=== PATIENT | male | born 2000 | race Caucasian/White ===

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

== ENCOUNTER 2021-02-10 12:26 | Emergency (ER) | payer SELFPAY ==
[2021-02-10 12:27] VITALS: BP 125/89; PULSE 103; RESP 18; TEMP 36.8; O2SAT 97; BMI 23.1
--- NOTE | 2021-02-10 12:48 | RAD_ITS ---
STUDY: X-RAY CHEST REASON FOR EXAM: Male, 20 years old. Chest pain TECHNIQUE: Single AP portable view of the chest. COMPARISON: None. FINDINGS: The lungs are clear and expanded. There is no demonstrated pleural abnormality. Normal size heart. Normal mediastinum and danuta. Normal visualized pulmonary arteries. Normal visualized aortic arch and descending thoracic aorta. Normal visualized thoracic spine. Normal visualized ribs, clavicles, and shoulders. There is no demonstrated abnormality of the visualized soft tissue structures of the upper abdomen. RAD/Chest 1 View (Portable) IMPRESSION: Normal x-ray examination of the chest. Electronically Signed: Nomi Hendricks MD at 13:10 EST , Service support ,
[2021-02-10 13:09] LABS: Absolute Lymphocyte Count 1.54 X10^3/uL (0.83-4.51); Absolute Neutrophil Count 3.2 X10^3/uL (2.0-7.7); Basophil# 0.01 X10^3/uL; Basophil% 0.2 % (0-1); Eosinophil# 0.05 X10^3/uL; Eosinophils% 0.9 % (0-5); Hematocrit 46.6 % (40-54); Hemoglobin 15.3 g/dL (13.0-16.5); Lymphocyte # 1.54 X10^3/ul (0.83-4.51); Lymphocyte % 29.1 % (19-41); Mean Corp Hgb Conc 32.8 g/dL (32-36); Mean Corpuscular Volume 91.4 fL (80-94); Mean Platelet Vol. 8.8 fl (6.2-12.0); Monocyte# 0.47 X10^3/uL; Monocyte% 8.9 % (0-10); NRBC Flagged by Analyzer 0 % (0-5); Neutrophil # 3.21 X10^3/uL (2.7-7.7); Neutrophil % 60.5 % (47-70); Platelet Count 263 K/mm3 (150-450); RBC Distribution Width CV 12.8 % (11.6-14.6); RBC Distribution Width SD 43.3 fl (35.1-43.9); White Blood Count 5.3 K/mm3 (4.4-11.0)
[2021-02-10 13:28] LABS: Anion Gap 6 (5-15); BUN 17 mg/dL (7-18); BUN/Creat Ratio 20.5 RATIO (10-20); Calcium,Total 9.2 mg/dL (8.5-10.1); Chloride 104 mmol/L (98-107); Creatinine, Serum 0.83 mg/dL (0.70-1.30); EST Glomerular Filtration Rate 124 mL/min (>60); Est Glom Filt Rate - Afr Amer 150 mL/min (>60); Estimated Creatinine Clearance 171.62 ml/min; Glucose 100 mg/dL (74-106); Potassium 4.1 mmol/L (3.5-5.1); Sodium Level 139 mmol/L (136-145); Troponin-I HS 4 pg/mL (3.0-78.0)
[2021-02-10 14:03] VITALS: BP 122/74; PULSE 83; RESP 17; O2SAT 100
--- NOTE | 2021-02-10 14:28 | EDS_ITS ---
HPI History of Present Illness Chief Complaint: Chest Pain Informant: patient Narrative Narrative: Presenting for evaluation intermittent chest pains with palpitations increasing in frequency since 2 months ago. Over last 2 weeks daily symptoms. He states feels sharp twinges of palpitations lasting a minute however progressing. He works doing [employer]. Today had symptoms throughout the day. No cough. No dyspnea. Symptoms left-sided. Reported lightheaded symptoms. No nausea or vomiting. Tobacco history. Family history of uncle with [place] at age of 38. Denies hypertension, diabetes, hypercholesterolemia. Denies any recent travel surgeries or immobilizations. No history of PE or DVT. States currently symptoms subsided. States had symptoms similar in the past however mild saw his PCP reported wanted to start him on medications however is unclear what medications. No history of stress test. Prior Similar Symptoms: Yes CVD Risk Factors: Positive for Family History 1' </=55 and Smoking [facility] Medical History ADHD Anxiety Home Medications clonazepam 1 mg PO BID PRN PRN 02/22/18 [History Last Taken Unknown] dicyclomine 20 mg PO TIDAC #20 cap 02/22/18 [Rx Last Taken Unknown] escitalopram oxalate 40 mg PO DAILY 02/22/18 [History Last Taken Unknown] thyroid (pork) [[place] Thyroid] 60 mg PO DAILY 02/22/18 [History Last Taken Unknown] Allergy/AdvReac Type Severity Reaction Status Date / Time Penicillins Allergy Anaphylaxis Verified 02/10/21 12:26 Surgical History Hx of cholecystectomy Social History Smoking Status: Never smoker ROS ROS ED Constitutional Constitutional ED: Denies chills, fever(s) or sweats Eyes Eyes: Denies change in vision ENT ENT ED: Denies dysphagia or sore throat Cardiovascular Cardiovascular: Reports chest pain and palpitations; Denies leg edema or racing heartbeat Respiratory/Chest Respiratory/Chest: Denies cough, dyspnea or dyspnea on exertion Gastrointestinal Gastrointestinal: Denies abdominal pain, diarrhea, nausea or vomiting Genitourinary Genitourinary ED: Denies dysuria, hematuria or urinary frequency Musculoskeletal Musculoskeletal: Denies back pain, extremity pain or neck pain Integumentary Denies rash or wounds Neurologic Neurologic: Denies headache(s), paresthesias or weakness EXAM Physical Exam Const Vital Signs: 02/10/21 12:27 02/10/21 14:03 02/10/21 16:08 Temperature 98.2 F Temperature Source Temporal Pulse Rate 103 H 83 125 H Respiratory Rate 18 17 17 Blood Pressure 125/89 H 122/74 H 133/82 H Blood Pressure Mean 101 90 Pulse Ox 97 100 100 Oxygen Delivery Method Room Air Room Air Positive well nourished and well developed General Appearance ED: well developed and NAD HEENT Reports moist mucous membranes normocephalic and atraumatic Eyes PERRL, EOMs intact bilaterally and conjunctivae normal General Eye ED: Yes normal appearance of both eyes Neck no lymphadenopathy and supple General: Negative for tenderness Chest Wall Chest: Negative for tenderness Resp normal respiratory effort and normal air movement Effort and Inspection: symmetric chest movement; Negative for respiratory distress Cardio regular rate, regular rhythm and no murmurs Peripheral Pulses: pulses 2+ throughout GI normal to inspection, nondistended, normoactive bowel sounds and non-tender Palpation: Negative for guarding or rebound tenderness present Back/Spine no CVA tenderness and no thoracic nor lumbar tenderness Extremity normal to inspection General Extremety ED: Negative for edema or tenderness General Extremity: Negative for edema Neuro oriented x3 and no sensory deficits noted Sensorium / Orientation: awake and alert Skin no rashes or lesions noted and no wounds Heart Score History: Slightly/Non-Suspicious ECG: Normal Risk Factors: 1 or 2 Risk Factors Troponin: </= Normal Limit Score: 1 MDM MDM MDM Narrative Medical decision making narrative: Patient appears primary complaints palpitations. EKG was normal. Heart rate normalized. Labs with troponin x2 -. He is symptom-free multiple evaluations. There is no current Holter monitor available in the department to discharge with the patient. I spoke with him will need to follow-up with his PCP however he states he called and they did not set up Holter monitors. Therefore he is given follow-up with cardiology. I discussed with him decrease caffeine intake to avoid stimulants for palpitations. He understands. Return precautions discussed. There was difficulty with crossover patient imagings, unable to review chest x-ray however report from radiology was normal. All questions were answered. Lab Data Attestation: I reviewed the patient's lab results. Labs: Laboratory Results - last 24 hr 02/10/21 02/10/21 02/10/21 13:05 13:05 15:25 WBC 5.3 RBC 5.10 Hgb 15.3 Hct 46.6 MCV 91.4 MCH 30.0 MCHC 32.8 RDW Std Deviation 43.3 RDW Coeff of [place] 12.8 Plt Count 263 MPV 8.8 Immature Gran % (Auto) 0.400 Neut % (Auto) 60.5 Lymph % (Auto) 29.1 [place] % (Auto) 8.9 Eos % (Auto) 0.9 Baso % (Auto) 0.2 Absolute Neuts (auto) 3.2 Absolute Lymphs (auto) 1.54 Nucleated RBC % 0 Sodium 139 Potassium 4.1 Chloride 104 Carbon Dioxide 29.0 Anion Gap 6 BUN 17 Creatinine 0.83 Estim Creat Clear Calc 171.62 Est GFR (MDRD) Af Amer 150 Est GFR (MDRD) Non-Af 124 BUN/Creatinine Ratio 20.5 H Glucose 100 Calcium 9.2 Troponin I High Sens 4 4 Radiography Chest X-Ray - ED: Read by Radiologist and Normal EKG Initial EKG: Attestation: I personally reviewed and interpreted this EKG as follows: Comments: Sinus rate of 87, no ST or T wave changes. QTc 416. Discharge Plan Triage Chief Complaint: Chest Pain ED Provider: Amado Carson Dx/Rx/DC Orders Clinical Impression: Palpitations, Chest pain Instructions: ED Chest Pain, Uncertain Cause, ED Palpitations Prescriptions: No Action clonazepam 1 MG tablet 1 mg PO BID PRN PRN (Reason: Anxiety) RF: 0 escitalopram oxalate 20 MG tablet 40 mg PO DAILY RF: 0 thyroid (pork) [[place] Thyroid] 60 MG tablet 60 mg PO DAILY RF: 0 dicyclomine 10 MG capsule 20 mg PO TIDAC Qty: 20 RF: 0 Primary Care Provider: Keith Mendoza Referrals: Keith Mendoza DO [Primary Care Provider] - 3-5 Days Mendel Villarreal MD [STAFF PHYSICIAN] - 3-5 Days Activity Restrictions/Additional Instructions: Your cardiac work-up is negative. Decrease your caffeine intake. Follow-up with your Dr. Villarreal to set up a Holter monitor as an outpatient since your doctor does not order the monitors. Disposition Disposition: Home, Self Care Discharge Date/Time: 02/10/21 16:09
[2021-02-10 15:48] LABS: Troponin-I HS 4 pg/mL (3.0-78.0)
[2021-02-10 16:08] VITALS: BP 133/82; PULSE 125; RESP 17; O2SAT 100
== END 2021-02-10 16:09 | disposition home or self-care (01) ==
PROVIDERS: Emergency Provider Emergency Medicine; PCP Family Medicine
DX: R00.2 Palpitations (principal); R07.9 Chest pain, unspecified; F41.9 Anxiety disorder, unspecified; Z79.899 Other long term (current) drug therapy
CPT/HCPCS: 71045; 80048; 84484; 85025; 93005; 99284; A4216

== ENCOUNTER 2021-03-17 08:23 | Outpatient (CLI) | payer SELFPAY | END 2021-03-17 23:59 | disposition short-term general hospital (02) | PROVIDERS: PCP Family Medicine; Referring Provider Internal Medicine Cardiovascular Disease; Visit Provider Internal Medicine Cardiovascular Disease | DX: R00.2 Palpitations (principal); R07.9 Chest pain, unspecified | CPT/HCPCS: 93225; 93226 ==

== ENCOUNTER 2021-05-22 13:56 | Outpatient (CLI) | payer SELFPAY ==
--- NOTE | 2021-05-22 14:01 | ECHOD_ITS ---
Reason For Study: Arrhythmia Procedure This was a 2D Doppler, Color Flow transthoracic echocardiogram. Exam performed in department. Left Ventricle Normal LV size. Left ventricular systolic function is normal. The estimated ejection fraction is 55 %. Normal diastology for age. No regional wall motion abnormalities noted. Right Ventricle Normal RV size. Normal systolic function. Atria Normal left atrium. Normal right atrium. Mitral Valve Normal mitral valve. Tricuspid Valve Normal tricuspid valve. Mild tricuspid valve insufficiency. Pulmonary artery systolic pressure is 26 mmHg. Aortic Valve Normal aortic valve. Trisinus/trileaflet aortic valve. Pulmonic Valve Normal pulmonic valve. Great Vessels Normal aortic root. The pulmonary artery is normal size. Normal inferior vena cava. Pericardium/Pleural No pericardial effusion. MMode/2D Measurements & Calculations LVIDd: 5.3 cm IVSd: 0.85 cm Ao root diam: 2.8 cm LVIDs: 3.9 cm LVPWd: 0.98 cm RVDd: 3.4 cm FS: 26.6 % LAV(MOD-bp): 29.0 ml LVAd ap4: 32.2 cm2 SV(MOD-sp4): 54.7 ml LAV(MOD-bp) Indexed: 13.1 ml/m2 LVLd ap4: 9.0 cm LAV(MOD-sp2): 36.0 ml EDV(MOD-sp4): 95.6 ml LAV(MOD-sp4): 20.4 ml EDV(sp4-el): 97.9 ml LVAs ap4: 19.3 cm2 LVLs ap4: 7.5 cm ESV(MOD-sp4): 40.9 ml ESV(sp4-el): 42.1 ml EF(MOD-sp4): 57.2 % EF(sp4-el): 57.0 % SV(sp4-el): 55.8 ml LA A4 area: 11.3 cm2 LA dimension(2D): 3.2 cm RA A4 area: 11.1 cm2 Doppler Measurements & Calculations MV E max reed: 110.2 cm/sec Lat Peak E' Reed: 18.1 cm/sec Med Peak E' Reed: 16.3 cm/sec MV A max reed: 61.5 cm/sec E/E' lat: 6.1 E/E' med: 6.8 MV E/A: 1.8 Ao V2 max: 135.2 cm/sec LV V1 max: 109.8 cm/sec PA V2 max: 97.3 cm/sec Ao max P.3 mmHg LV V1 max P.8 mmHg Ao V2 mean: 98.0 cm/sec Ao mean P.1 mmHg Ao V2 VTI: 25.5 cm TR max reed: 237.3 cm/sec TR max P.5 mmHg ECHO/Echo Complete Interpretation Summary Normal LV size. Left ventricular systolic function is normal. The estimated ejection fraction is 55 %. Pulmonary artery systolic pressure is 26 mmHg. Normal diastology for age. Structurally normal valves. Ordering Physician: Javid Christiansen Referring Physician: Keith Mendoza Performed By: Keisha Wiggins, ALBER, RVT
== END 2021-05-22 23:59 | disposition home or self-care (01) ==
LOC: CVS 14:00
PROVIDERS: PCP Family Medicine; Referring Provider Internal Medicine Cardiovascular Disease; Visit Provider Internal Medicine Cardiovascular Disease
DX: R00.2 Palpitations (principal)
CPT/HCPCS: 93306